=== PATIENT | female | born 1975 | race Caucasian/White ===

== ENCOUNTER 2019-02-18 18:03 | Emergency (ER) | payer OTHER ==
[~2019-02-18] VITALS: Ht 182.9 cm; Wt 67.1 kg
[~2019-02-18 18:03] MED LIST: IBUP800T48 PO
[2019-02-18 18:07] VITALS: Ht 182.9 cm; Wt 67.1 kg
--- NOTE | 2019-02-18 18:46 | ERD ---
ER Documentation Chief Complaint Chief Complaint left side sharp pelvic pain x1wk HPI Patient is a 43 years old female with past medical history of bilateral tubal ligation presenting to the clinic for left-sided pelvic pain X 1 week. Patient reports the pain came during her menstrual cycle and has been consistent since then rating it sharp. She denies radiation, fever, chills, night sweats, dysuria, urinary urgency, vaginal discharge, nausea, emesis, constipation, diarrhea, hematochezia, melena. Patient reports currently the pain has resolved. Patient denies take any OTC medication. ROS All systems reviewed and are negative except as per history of present illness. Allergies Allergies: Coded Allergies: No Known Allergy (Unverified , 02/18/19) PMhx/Soc History of Surgery: No Anesthesia Reaction: No Hx Neurological Disorder: No Hx Respiratory Disorders: No Hx Cardiac Disorders: No Hx Psychiatric Problems: No Hx Miscellaneous Medical Probl: No FmHx Family History: No diabetes, No coronary disease, No other Physical Exam Vitals Vital Signs Date Temp Pulse Resp B/P (MAP) Pulse Ox O2 O2 Flow FiO2 Time Delivery Rate 02/18/19 98.2 78 18 138/65 100 18:07 (89) Physical Exam Const: No acute distress Head: Atraumatic Resp: Clear to auscultation bilaterally Cardio: Regular rate and rhythm, no murmurs Abd: Soft, non tender, non distended. Normal bowel sounds. Negative Dent sign, Rovsing sign, McBurney's point tenderness, guarding, rebound tenderness, Dante sign, Neal Kang sign. Back: No midline or flank tenderness. Negative CVAT. Psych: Normal Mood and Affect Result Diagram: 02/18/19192102/18/191921 Results 24 hrs Laboratory Tests Test 02/18/19 19:00 02/18/19 19:22 02/18/19 19:46 Urine Color YELLOW Urine Clarity CLEAR Urine pH 6.0 Urine Specific [place] 1.021 Urine Ketones NEGATIVE mg/dL Urine Nitrite NEGATIVE mg/dL Urine Bilirubin NEGATIVE mg/dL Urine Urobilinogen NEGATIVE mg/dL Urine Leukocyte Esterase NEGATIVE [place]/ul Urine Microscopic RBC 2 /HPF Urine Microscopic WBC 2 /HPF Urine Hemoglobin 1+ mg/dL Urine Glucose NEGATIVE mg/dL Urine Total Protein NEGATIVE mg/dl White Blood Count 6.1 10^3/ul Red Blood Count 4.11 10^6/ul Hemoglobin 12.6 g/dl Hematocrit 38.8 % Mean Corpuscular Volume 94.4 fl Mean Corpuscular Hemoglobin 30.7 pg Mean Corpuscular 32.5 g/dl Hemoglobin Concent Red Cell Distribution Width 13.2 % Platelet Count 218 10^3/UL Mean Platelet Volume 10.3 fl Immature Granulocytes % 0.200 % Neutrophils % 59.5 % Lymphocytes % 31.1 % Monocytes % 7.3 % Eosinophils % 1.2 % Basophils % 0.7 % Nucleated Red Blood Cells % 0.0 /100WBC Immature Granulocytes # 0.010 10^3/ul Neutrophils # 3.6 10^3/ul Lymphocytes # 1.9 10^3/ul Monocytes # 0.4 10^3/ul Eosinophils # 0.1 10^3/ul Basophils # 0.0 10^3/ul Nucleated Red Blood Cells # 0.0 10^3/ul Sodium Level 139 mmol/L Potassium Level 4.1 mmol/L Chloride Level 105 mmol/L Carbon Dioxide Level 27 mmol/L Anion Gap 7 Blood Urea Nitrogen 14 mg/dl Creatinine 0.69 mg/dl Est Glomerular Filtrat > 60 mL/min Rate mL/min Glucose Level 93 mg/dl Calcium Level 9.3 mg/dl Total Bilirubin 0.5 mg/dl Direct Bilirubin 0.00 mg/dl Indirect Bilirubin 0.5 mg/dl Aspartate Amino Transf (AST/SGOT) 22 IU/L Alanine 23 IU/L Aminotransferase (ALT/SGPT) Alkaline Phosphatase 53 IU/L Total Protein 7.8 g/dl Albumin 4.5 g/dl Globulin 3.30 g/dl Albumin/Globulin Ratio 1.36 POC Beta HCG, Qualitative NEGATIVE Procedures/MDM Patient was seen and evaluated for left-sided pelvic pain X 1 week. Pelvic and abdominal ultrasound revealed: 1. Normal size anteverted uterus with a 2.8 mm endometrial stripe. Tiny Nabothian cysts are seen in the cervix. 2. Normal appearing ovaries with each demonstrating vascular flow on Doppler. 3. No adnexal mass or free fluid is evident. CBC, CMP, urinalysis is grossly unremarkable. Urine negative. Low suspicion for appendicitis, colitis, pancreatitis, colitis, pyelonephritis, ovarian torsion. Patient is currently using a nabothian cyst does not require the ER management. Patient is stable ready for discharge. Follow-up with PCP and [employer] [facility] [employer]. Patient be discharged with ibuprofen. Departure Diagnosis: Primary Impression: Nabothian cyst Condition: Stable Patient Instructions: Endometriosis Referrals: [facility] Additional Instructions: Patient advised to return to the ED immediately for new or worsening symptoms. Patient advised to follow up with primary care provider in the next 24-48 hours. Patient verbalized understanding and agrees with treatment plan and course of action. If patient has no primary care they may follow up with [facility] + [facility] [address] [place] [id number] or [facility] [id number] [place] [id number] or [facility] [address] [place] [address] FREIDA ASIF PA-C Feb 18, 2019 18:46
[2019-02-18 20:45] VITALS: BP 130/60; PULSE 59; RESP 20
== END 2019-02-18 20:55 | disposition home or self-care (01) ==
LOC: FTE 18:03
DX: N88.8 Other specified noninflammatory disorders of cervix uteri (principal)
CPT/HCPCS: 36415; 76830; 76856; 80053; 81001; 81025; 85025; Z7502